=== PATIENT | male | born 1970 | race Caucasian/White ===

== ENCOUNTER 2025-03-02 22:56 | Emergency (ER) | payer OTHER ==
[~2025-03-02] VITALS: Ht 182.9 cm; Wt 104.3 kg
[2025-03-03] MEDS ORDERED: TDAP DIPH,PERTUSS,TET VAC/PF 0.5 ML DISP.SYRIN IM ONE (00:51)
[2025-03-03] MEDS: TDAP DIPH,PERTUSS,TET VAC/PF 0.5 ML DISP.SYRIN IM ONE (00:53)
[2025-03-03] MEDS ORDERED: LIDOCAINE HCL 1% 20 ML VIAL ONE (04:35)
[2025-03-03] MEDS ORDERED: HYDROCODONE/APAP 10-325 MG TABLET ONE ×2 (04:41→04:46)
[2025-03-03] MEDS: HYDROCODONE/APAP 10-325 MG TABLET PO ONE (05:43)
[2025-03-03 05:58] VITALS: BP 130/86; O2SAT 97
== END 2025-03-03 05:58 | disposition home or self-care (01) ==
LOC: ER 23:13
DX: S81.012A Laceration without foreign body, left knee, initial encounter (principal); S81.812A Laceration without foreign body, left lower leg, initial encounter; F17.210 Nicotine dependence, cigarettes, uncomplicated; Z88.7 Allergy status to serum and vaccine; Y04.0XXA Assault by unarmed brawl or fight, initial encounter; Y93.89 Activity, other specified; Y92.89 Other specified places as the place of occurrence of the external cause; Y99.8 Other external cause status
CPT/HCPCS: 73590; 90715; A4606; A4663; J3490

== ENCOUNTER 2025-04-25 21:19 | Emergency (ER) | payer OTHER ==
[~2025-04-25] VITALS: Ht 182.9 cm; Wt 104.3 kg
[2025-04-25] MEDS ORDERED: NEOMY/BACITRA/POLYMYXIN B OINT UD PACKET TP ONE (21:56)
[2025-04-25] MEDS ORDERED: CEPH500C2 PO (22:06)
[2025-04-25] MEDS ORDERED: NEOM1OIN19 TP (22:06)
[2025-04-25] MEDS ORDERED: NAPR-1009 PO (22:10)
[2025-04-25] MEDS: LIDOCAINE 1%-EPI 1:100,000 20 ML VIAL MC ONE (22:10)
[2025-04-25] MEDS: NEOMY/BACITRA/POLYMYXIN B OINT UD PACKET TP ONE (22:11)
[2025-04-25] MEDS ORDERED: NAPROXEN 500 MG TABLET ONE (22:12)
[2025-04-25] MEDS: NAPROXEN 500 MG TABLET PO ONE (22:16)
[2025-04-25 22:17] VITALS: BP 122/72; O2SAT 96
== END 2025-04-25 22:18 | disposition home or self-care (01) ==
LOC: ER 21:19
DX: S01.81XA Laceration without foreign body of other part of head, initial encounter (principal); S70.12XA Contusion of left thigh, initial encounter; F17.210 Nicotine dependence, cigarettes, uncomplicated; Z87.820 Personal history of traumatic brain injury; Z88.7 Allergy status to serum and vaccine; V22.49XA Other motorcycle driver injured in collision with two- or three-wheeled motor vehicle in traffic accident, initial encounter; Y93.55 Activity, bike riding; Y92.488 Other paved roadways as the place of occurrence of the external cause; Y99.8 Other external cause status
CPT/HCPCS: 12013; 99284; J3490; A4606; A4663